=== PATIENT | female | born 1995 | race African-American/Black ===

== ENCOUNTER 2016-11-15 19:40 | Emergency (ER) | payer OTHER ==
[2016-11-15 22:48] LABS: MEAN CORPUSCULAR HEMOGLOBIN 32.4 pg (27.0-33.0); MEAN CORPUSCULAR HGB CONC 32.3 g/dl (32.0-36.5); MEAN CORPUSCULAR VOLUME 100.3 fl (80.0-96.0); RED CELL DISTRIBUTION WIDTH 12.3 % (11.5-14.5); WHITE BLOOD COUNT 9.8 K/mm3 (4.0-10.0)
[2016-11-15 23:25] LABS: ANION GAP 7 MEQ/L (8-16); BLOOD UREA NITROGEN 7 MG/DL (7-18); CALCIUM LEVEL 8.9 MG/DL (8.5-10.1); CARBON DIOXIDE LEVEL 27 MEQ/L (21-32); CHLORIDE LEVEL 105 MEQ/L (98-107); CREATININE FOR GFR 0.47 MG/DL (0.55-1.02); GLOMERULAR FILTRATION RATE > 60.0 (>60); GLUCOSE, FASTING 82 MG/DL (70-105); HCG, SERUM QUANTITATIVE 88318 MIU/ML; POTASSIUM SERUM 3.9 MEQ/L (3.5-5.1); SODIUM LEVEL 139 MEQ/L (136-145)
--- NOTE | 2016-11-15 23:50 | REPUSA ---
CLINICAL HISTORY: Pelvic pain. TECHNIQUE: Transabdominal ultrasound of the pelvis was performed. FINDINGS: The uterus is anteverted. A pole is identified with crown-rump length of 2.26 cm, which corresponds to a gestational age of 9 weeks and 0 days. heart motion is not demonstrated. Both ovaries are identified without adnexal mass or pelvic fluid collection. IMPRESSION: Single IUP dated at 9 weeks, without heartbeat compatible with embryonic demise.
[2016-11-16] MEDS ORDERED: metroNIDAZOLE (FLAGYL) 250 MG TAB As Ordered ONE (01:20)
--- NOTE | 2016-11-16 01:27 | EDDOCDS ---
Nurse's Notes [facility] Name: Janene Miner Age: 21 yrs Sex: Female : 1995 Arrival Date: 11/15/2016 Time: 19:40 Bed I3 / M3 [facility] Diagnosis: Missed ;Vaginitis, vulvitis and vulvovaginitis in diseases classified elsewhere Presentation: 11/15 19:48 Presenting complaint: Patient states: that she thinks she is and is having a ms18 "small vaginal odor". Adult Sepsis Screening: The patient does not have new or worsening altered mentation. Patient's respiratory rate is less than 22. Systolic blood pressure is greater than 100. Patient has a qSOFA score of 0- Negative Sepsis Screen. Suicide/Homicide risk assessment- the patient denies having any suicidal and/or homicidal ideations and does not present with any other emotional, behavioral or mental health complaints. 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 Transition of care: patient was not received from another setting of care. 19:48 Acuity: ED Level 4 ms18 19:48 Method Of Arrival: Walkin/Carried/Asstd ms18 Triage Assessment: 19:50 General: Appears in no apparent distress, Behavior is appropriate for age, cooperative. ms18 Pain: Denies pain. HIV screening NA for this visit Offered previously. Neurological: No deficits noted. Respiratory: No deficits noted. : Reports vaginal odor. Derm: Skin is pink, warm & dry. 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 none - PMHx: G6P deficiency; - PSHx: none; - Social history: Smoking status: Patient states was never smoker of tobacco. No barriers to communication noted, The patient speaks fluent Beninese. - Family history: Not pertinent. - : The pt / caregiver states he / she is not on anticoagulants. Home medication list is obtained from the patient. - Exposure Risk Screening:: None identified. Screenin/03 00:01 Screening information is obtained from the patient. Fall risk: No risks identified. lf1 Assistance ADL's: requires no assistance with activities of daily living. Nutritional screening: No deficits noted. 01:24 Abuse/DV Screen: The patient / caregiver reports he/she is: not in a situation that lf1 causes fear, pain or injury. Advance Directives: Currently, there is no health care proxy. home support is adequate. Assessment: 00:01 Adult Sepsis Screening: The patient does not have new or worsening altered mentation. lf1 Patient's respiratory rate is less than 22. Systolic blood pressure is greater than 100. Patient has a qSOFA score of 0- Negative Sepsis Screen. General: Appears in no apparent distress, comfortable, Behavior is cooperative, First Pt. contact - no report received. . Pain: Denies pain. Neurological: Level of Consciousness is awake, alert, Oriented to person, place, time. EENT: No deficits noted. Cardiovascular: Chest pain is denied. Respiratory: Respiratory effort is even, unlabored. GI: Denies nausea, vomiting. : Denies vaginal bleeding. Derm: Skin is normal. Injury Description: No known injury. 01:24 General: Appears in no apparent distress, comfortable, Behavior is cooperative, lf1 laughing with SO in room. Pain: Denies pain. Neurological: Level of Consciousness is awake, alert. EENT: No deficits noted. Cardiovascular: No deficits noted. Respiratory: Respiratory effort is even, unlabored. GI: Denies nausea, vomiting. Derm: Skin is normal. Vital Signs: 11/15 19:42 BP 114 / 61; Pulse 95; Resp 18 S; Temp 97.4(T); Pulse Ox 100% on R/A; Weight 48.53 kg dd6 (R); Height 5 ft. 2 in. (157.48 cm) (R); 11/16 00:01 BP 115 / 78; Pulse 76; Resp 16; Temp 98.0(TE); Pulse Ox 99% on R/A; Pain 0/10; lf1 00:54 BP 105 / 53 LA Sitting (auto/reg); Pulse 84 MON; Resp 18 S; Temp 98.6(TE); Pulse Ox 98% cln on R/A; Pain 0/10; 11/15 19:42 Body Mass Index 19.57 (48.53 kg, 157.48 cm) dd6 Vitals: 11/15 19:42 Log In Time: November 15, 2016 at 19:40. dd6 ED Course: 19:41 Patient visited by Jose Carlos Garza, DAILY. dd6 19:41 Patient moved to Waiting dd6 19:42 [facility], Tasha Millan is Private Physician. dd6 19:43 Patient moved to Pre RCE dd6 19:49 Triage Initiated ms18 22:07 Patient moved to Triage 2 ar3 22:08 Kwaku Venegas PA is PHCP. mo1 22:08 David Saldana MD is Attending Physician. mo1 22:13 Patient visited by Kwaku Venegas PA. mo1 22:20 Urine Culture Sent. jmb 22:20 UA Sent. jmb 22:39 Patient moved to TR1 cz 22:42 Wet Prep Sent. ar3 22:42 GC & Chlamydia Amplification Sent. ar3 22:42 BMP Sent. ar3 22:42 Complete Blood Count Sent. ar3 22:42 Hcg, Serum Quantitative Sent. ar3 22:42 Type & Screen Sent. ar3 22:43 Patient visited by Briana Roque PCA. ar3 22:43 Patient moved to Ultrasound dmg 23:06 Patient moved to TR1 dmg 23:42 [facility] Payment Agreement was scanned into [employer] and attached to record. lja 23:54 Patient moved to I3 / M3 jmb 01 00:01 The patient / caregiver is instructed regarding the plan of care and ED course. lf1 00:21 US 1st trimester Returned. EDMS 00:22 Patient visited by Jina Genao RN. lf1 00:55 Patient visited by Aneta Liu PCA. cln 01:04 Samm Lo MD is Referral Physician. mo1 01:24 No IV's were initiated during this patient's visit. No procedures done that require lf1 assistance. 01:27 Patient visited by Jina Genao RN. lf1 Administered Medications: 01:24 Drug: metroNIDAZOLE 500 mg [metronidazole 250 mg tablet (2 tabs)] Route: PO; lf1 Point of Care Testing: Urine : 11/15 22:43 hCG Reading: Positive; Control Reading: Positive; ar3 Ranges: Order Results: Lab Order: UA; SPEC'M 11/15/16 22:20 Test: APPEARANCE, URINE; Value: CLEAR; Range: CLEAR; Status: F Test: COLOR, URINE; Value: YELLOW; Range: YELLOW; Status: F Test: PH,URINE; Value: 7.0; Range: 5.0-9.0; Units: UNITS; Status: F Test: SPECIFIC GRAVITY URINE AUTO; Value: 1.015; Range: 1.002-1.035; Status: F Test: PROTEIN, URINE AUTO; Value: NEGATIVE; Range: NEGATIVE; Units: mg/dL; Status: F Test: GLUCOSE, URINE (UA) AUTO; Value: NEGATIVE; Range: NEGATIVE; Units: mg/dL; Status: F Test: KETONE, URINE AUTO; Value: NEGATIVE; Range: NEGATIVE; Units: mg/dL; Status: F Test: UROBILINOGEN, URINE AUTO; Value: 4.0; Range: 0.0-2.0; Abnormal: Above high normal; Units: mg/dL; Status: F Test: BILIRUBIN, URINE AUTO; Value: NEGATIVE; Range: NEGATIVE; Status: F Test: NITRITE, URINE AUTO; Value: NEGATIVE; Range: NEGATIVE; Status: F Test: LEUKOCYTE ESTERASE, URINE AUTO; Value: 1+; Range: NEGATIVE; Abnormal: Above high normal; Status: F Test: BLOOD, URINE BLOOD; Value: NEGATIVE; Range: NEGATIVE; Status: F Test: WBC, URINE AUTO; Value: 1; Range: 0-3; Units: /HPF; Status: F Test: RBC, URINE AUTO; Value: 2; Range: 0-3; Units: /HPF; Status: F Test: BACTERIA, URINE AUTO; Value: NEGATIVE; Range: NEGATIVE; Status: F Test: SQUAMOUS EPITHELIAL CELL UR AU; Value: 2; Range: 0-6; Units: /HPF; Status: F Test: HYALINE CAST, URINE AUTO; Value: 0; Range: 0-1; Units: /LPF; Status: F Test: AMORPHOUS SEDIMENT; Value: SMALL; Range: NEGATIVE; Abnormal: Above high normal; Status: F Lab Order: Complete Blood Count; SPEC'M 11/15/16 22:39 Test: WHITE BLOOD COUNT; Value: 9.8; Range: 4.0-10.0; Units: K/mm3; Status: F Test: RED BLOOD COUNT; Value: 3.59; Range: 4.00-5.40; Abnormal: Below low normal; Units: M/mm3; Status: F Test: HEMOGLOBIN; Value: 11.6; Range: 12.0-16.0; Abnormal: Below low normal; Units: g/dl; Status: F Test: HEMATOCRIT; Value: 36.0; Range: 36.0-47.0; Units: %; Status: F Test: MEAN CORPUSCULAR VOLUME; Value: 100.3; Range: 80.0-96.0; Abnormal: Above high normal; Units: fl; Status: F Test: MEAN CORPUSCULAR HEMOGLOBIN; Value: 32.4; Range: 27.0-33.0; Units: pg; Status: F Test: MEAN CORPUSCULAR HGB CONC; Value: 32.3; Range: 32.0-36.5; Units: g/dl; Status: F Test: RED CELL DISTRIBUTION WIDTH; Value: 12.3; Range: 11.5-14.5; Units: %; Status: F Test: PLATELET COUNT, AUTOMATED; Value: 319; Range: 150-450; Units: k/mm3; Status: F Lab Order: Hcg, Serum Quantitative; SPEC'M 11/15/16 22:39 Test: HCG, SERUM QUANTITATIVE; Value: 23993; Units: MIU/ML; Status: F Test Note: ; GESTATIONAL AGE APPROXIMATE HCG RANGE (MIU/ML) 0.2-1 WEEK 5-50 1-2 WEEKS 50-500 2-3 WEEKS 100-5,000 3-4 WEEKS 500-10,000 4-5 WEEKS 1,000-50,000 5-6 WEEKS 10,000-100,000 6-8 WEEKS 15,000-200,000 2-3 MONTHS 10,000-100,000 NON FEMALES LESS THAN 3.0 Patient samples may contain human heterophilic antibodies that could react with immunoassays to give falsely elevated or depressed results. This assay has been designed to minimize interference from heterophilic antibodies. Elevated hCG levels have also been associated with trophoblastic disease and nontrophoblastic neoplasms. The possibility of having these diseases should be considered before a diagnosis of is made. This test is not intended for use as a surrogate marker for aiding in the diagnosis or monitoring the treatment of cancer patients. Siemens Gimmie methodology. Lab Order: Type & Screen; SPEC'M 11/15/16 22:39 Test: BLOOD TYPE; Value: O POS; Status: F Test: AB SCREEN (INDIRECT CAN)GEL; Value: NEGATIVE; Status: F Lab Order: BMP; SPEC'M 11/15/16 22:39 Test: GLUCOSE, FASTING; Value: 82; Range: 70-105; Units: MG/DL; Status: F Test: BLOOD UREA NITROGEN; Value: 7; Range: 7-18; Units: MG/DL; Status: F Test: CREATININE FOR GFR; Value: 0.47; Range: 0.55-1.02; Abnormal: Below low normal; Units: MG/DL; Status: F Test: GLOMERULAR FILTRATION RATE; Value: > 60.0; Range: >60; Status: F Test: SODIUM LEVEL; Value: 139; Range: 136-145; Units: MEQ/L; Status: F Test: POTASSIUM SERUM; Value: 3.9; Range: 3.5-5.1; Units: MEQ/L; Status: F Test: CHLORIDE LEVEL; Value: 105; Range: 98-107; Units: MEQ/L; Status: F Test: CARBON DIOXIDE LEVEL; Value: 27; Range: 21-32; Units: MEQ/L; Status: F Test: ANION GAP; Value: 7; Range: 8-16; Abnormal: Below low normal; Units: MEQ/L; Status: F Test: CALCIUM LEVEL; Value: 8.9; Range: 8.5-10.1; Units: MG/DL; Status: F Test Note: ; Units are mL/min/1.73 m2 Chronic Kidney Disease Staging per NKF: Stage I & II GFR >=60 Normal to Mildly Decreased Stage III GFR 30-59 Moderately Decreased Stage IV GFR 15-29 Severely Decreased Stage V GFR <15 Very Little GFR Left ESRD GFR <15 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 Lab Order: Wet Prep; SPEC'M 11/15/16 22:36 Test: WET PREP; Value: WET PREP RESULT; Status: F Test: WET PREP; Value: MANY EPITHELIAL CELLS PRESENT; Status: F Test: WET PREP; Value: MANY CLUE CELLS PRESENT; Status: F Test: WET PREP; Value: MANY WBC; Status: F Test: WET PREP; Value: MANY SHORT RODS PRESENT; Status: F Radiology Order: US 1st trimester Test: US 1st trimester REASON FOR EXAMINATION: pelvic pain; ; CLINICAL HISTORY: Pelvic pain.; TECHNIQUE: Transabdominal ultrasound of the pelvis was; performed.; FINDINGS: The uterus is anteverted.; A pole is identified with crown-rump length of 2.26 cm, which corresponds to a gestational age; of 9 weeks and 0 days.; heart motion is not demonstrated.; Both ovaries are identified without adnexal mass or pelvic fluid collection.; IMPRESSION: Single IUP dated at 9 weeks, without heartbeat compatible with embryonic demise.; ; Outcome: 11/16 01:04 Discharge ordered by Provider. mo1 01:24 Discharge Assessment: Patient awake, alert and oriented x 3. No cognitive and/or lf1 functional deficits noted. Patient verbalized understanding of disposition instructions. Patient awake and alert. Oriented to person, place and time. Patient verbalized understanding of disposition instructions. Patient has no functional deficits. patient administered narcotics - no. The following High Risk Discharge criteria are identified: None. Discharged to home ambulatory, with significant other. Condition: unchanged. Discharge instructions given to patient, Instructed on discharge instructions, follow up and referral plans. medication usage, Demonstrated understanding of instructions, medications, Pt was receptive of discharge instructions/ teaching. Prescriptions given X 1. Ultrasound Study completed. Property :Personal belongings accompany Pt. 01:26 Patient left the ED. lf1 Signatures: Dispatcher [employer] EDMS Alphonso Arciniega, RN Susan Sol Lisa, RN RN lf1 Jose Carlos Garza, VULCANIZER VULCANIZER dd6 Briana Roque, VULCANIZER VULCANIZER wagner3 Kwaku Venegas PA PA mo1 Senthil Dias RN RN jmb Smith, Mallory, RN RN ms18 Jina Coleman Crystal, VULCANIZER VULCANIZER cln [place]
--- NOTE | 2016-11-16 01:27 | EDDOCDS ---
Physician Documentation [facility] Name: Janene Miner Age: 21 yrs Sex: Female : 1995 Arrival Date: 11/15/2016 Time: 19:40 Bed I3 / M3 Private MD: IATasha RODRIGUEZ Disposition: 11/16/16 01:04 Discharged to Home/Self Care. Impression: Missed , Vaginitis, vulvitis and vulvovaginitis in diseases classified elsewhere. - Condition is Stable. - Discharge Instructions: Bacterial Vaginosis, Incomplete Miscarriage, Miscarriage. - Prescriptions for Flagyl 500 mg Oral Tablet - take 1 tablet by ORAL route every 8 hours for 10 days; 30 tablet. - Medication Reconciliation, Local Pharmacy Hours form. - Follow up: Samm Lo MD; When: Call to arrange an appointment; Reason: Recheck today's complaints, Continuance of care. - Problem is new. - Symptoms are unchanged. Historical: - Allergies: G6P defficiency; - Home Meds: 1. none - PMHx: G6P deficiency; - PSHx: none; - Social history: Smoking status: Patient states was never smoker of tobacco. No barriers to communication noted, The patient speaks fluent Amharic. - Family history: Not pertinent. - : The pt / caregiver states he / she is not on anticoagulants. Home medication list is obtained from the patient. - Exposure Risk Screening:: None identified. 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 2 in. (157.48 cm) (R); 11/16 00:01 BP 115 / 78; Pulse 76; Resp 16; Temp 98.0(TE); Pulse Ox 99% on R/A; Pain 0/10; lf1 00:54 BP 105 / 53 LA Sitting (auto/reg); Pulse 84 MON; Resp 18 S; Temp 98.6(TE); Pulse Ox 98% cln on R/A; Pain 0/10; 11/15 19:42 Body Mass Index 19.57 (48.53 kg, 157.48 cm) dd6 MDM: 11/15 22:17 UCG by Nursing ordered. mo1 22:18 UA Ordered. EDMS 22:18 Urine Culture Ordered. EDMS 22:28 Complete Blood Count Ordered. EDMS 22:28 Hcg, Serum Quantitative Ordered. EDMS 22:28 BMP Ordered. EDMS 22:28 GC & Chlamydia Amplification Ordered. EDMS 22:28 Wet Prep Ordered. EDMS 22:29 Type & Screen Ordered. EDMS 22:29 US 1st trimester Ordered. EDMS 23:16 Wet Prep Reviewed. mo1 23:16 Complete Blood Count Reviewed. mo1 23:17 UA Reviewed. mo1 23:38 BMP Reviewed. mo1 23:38 Hcg, Serum Quantitative Reviewed. mo1 23:38 Type & Screen Reviewed. mo1 23:42 [facility] Payment Agreement was scanned into [employer] and attached to record. [place]saline 23:42 Financial registration complete. [facility] 11/16 01:07 metroNIDAZOLE 500 mg PO once ordered. mo1 Point of Care Testing: Urine : 11/15 22:43 hCG Reading: Positive; Control Reading: Positive; ar3 Ranges: Administered Medications: 11/16 01:24 Drug: metroNIDAZOLE 500 mg [metronidazole 250 mg tablet (2 tabs)] Route: PO; lf1 Signatures: Dispatcher [employer] Jina Mixon,RN RN lf1 Kwaku Venegas PA PA mo1 Shanna Floyd RN RN ms18 Jina Coleman The chart was reviewed and I authenticate all verbal orders and agree with the evaluation and treatment provided.Attachments: 11/15 23:42 [facility] Payment Agreement [facility] MTDD
--- NOTE | 2016-11-18 02:27 | EDDOCDS ---
Physician Documentation [facility] Name: Janene Miner Age: 21 yrs Sex: Female : 1995 Arrival Date: 11/15/2016 Time: 19:40 Bed I3 / M3 Private MD: ILTasha RODRIGUEZ Disposition: 11/16/16 01:04 Discharged to Home/Self Care. Impression: Missed , Vaginitis, vulvitis and vulvovaginitis in diseases classified elsewhere. - Condition is Stable. - Discharge Instructions: Bacterial Vaginosis, Incomplete Miscarriage, Miscarriage. - Prescriptions for Flagyl 500 mg Oral Tablet - take 1 tablet by ORAL route every 8 hours for 10 days; 30 tablet. - Medication Reconciliation, Local Pharmacy Hours form. - Follow up: Samm Lo MD; When: Call to arrange an appointment; Reason: Recheck today's complaints, Continuance of care. - Problem is new. - Symptoms are unchanged. Historical: - Allergies: G6P defficiency; - Home Meds: 1. none - PMHx: G6P deficiency; - PSHx: none; - Social history: Smoking status: Patient states was never smoker of tobacco. No barriers to communication noted, The patient speaks fluent Yoruba. - Family history: Not pertinent. - : The pt / caregiver states he / she is not on anticoagulants. Home medication list is obtained from the patient. - Exposure Risk Screening:: None identified. 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 2 in. (157.48 cm) (R); 11/16 00:01 BP 115 / 78; Pulse 76; Resp 16; Temp 98.0(TE); Pulse Ox 99% on R/A; Pain 0/10; lf1 00:54 BP 105 / 53 LA Sitting (auto/reg); Pulse 84 MON; Resp 18 S; Temp 98.6(TE); Pulse Ox 98% cln on R/A; Pain 0/10; 11/15 19:42 Body Mass Index 19.57 (48.53 kg, 157.48 cm) dd6 MDM: 11/15 22:17 UCG by Nursing ordered. mo1 22:18 UA Ordered. EDMS 22:18 Urine Culture Ordered. EDMS 22:28 Complete Blood Count Ordered. EDMS 22:28 Hcg, Serum Quantitative Ordered. EDMS 22:28 BMP Ordered. EDMS 22:28 GC & Chlamydia Amplification Ordered. EDMS 22:28 Wet Prep Ordered. EDMS 22:29 Type & Screen Ordered. EDMS 22:29 US 1st trimester Ordered. EDMS 23:16 Wet Prep Reviewed. mo1 23:16 Complete Blood Count Reviewed. mo1 23:17 UA Reviewed. mo1 23:38 BMP Reviewed. mo1 23:38 Hcg, Serum Quantitative Reviewed. mo1 23:38 Type & Screen Reviewed. mo1 23:42 [facility] Payment Agreement was scanned into [employer] and attached to record. [facility] 23:42 Financial registration complete. [facility] 11/16 01:07 metroNIDAZOLE 500 mg PO once ordered. mo1 04:36 T-Sheet-- Draft Copy was scanned into [employer] and attached to record. hs2 10:58 Radiology Report was scanned into [employer] and attached to record. gb 10:59 Other: CERTIFICATION INFO was scanned into [employer] and attached to record. gb Point of Care Testing: Urine : 11/15 22:43 hCG Reading: Positive; Control Reading: Positive; ar3 Ranges: Administered Medications: 11/16 01:24 Drug: metroNIDAZOLE 500 mg [metronidazole 250 mg tablet (2 tabs)] Route: PO; lf1 01:27 Follow up: Response: Pt left department before re-evaluation is appropriate lf1 Signatures: Dispatcher [employer] Stephanie Eduardo, Reg Reg gb Jina Genao,RN RN lf1 Kwaku Venegas PA PA mo1 Shanna Floyd,SOLA RN ms18 Jina Coleman Hillary, Reg Reg hs2 The chart was reviewed and I authenticate all verbal orders and agree with the evaluation and treatment provided.Attachments: 11/15 23:42 [facility] Payment Agreement [facility] 11/16 04:36 T-Sheet-- Draft Copy hs2 Chart Complete MTDD
--- NOTE | 2016-11-18 02:27 | EDDOCDS ---
Nurse's Notes [facility] Name: Janene Miner Age: 21 yrs Sex: Female : 1995 Arrival Date: 11/15/2016 Time: 19:40 Bed I3 / M3 [facility] Diagnosis: Missed ;Vaginitis, vulvitis and vulvovaginitis in diseases classified elsewhere Presentation: 11/15 19:48 Presenting complaint: Patient states: that she thinks she is and is having a ms18 "small vaginal odor". Adult Sepsis Screening: The patient does not have new or worsening altered mentation. Patient's respiratory rate is less than 22. Systolic blood pressure is greater than 100. Patient has a qSOFA score of 0- Negative Sepsis Screen. Suicide/Homicide risk assessment- the patient denies having any suicidal and/or homicidal ideations and does not present with any other emotional, behavioral or mental health complaints. 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 Transition of care: patient was not received from another setting of care. 19:48 Acuity: ED Level 4 ms18 19:48 Method Of Arrival: Walkin/Carried/Asstd ms18 Triage Assessment: 19:50 General: Appears in no apparent distress, Behavior is appropriate for age, cooperative. ms18 Pain: Denies pain. HIV screening NA for this visit Offered previously. Neurological: No deficits noted. Respiratory: No deficits noted. : Reports vaginal odor. Derm: Skin is pink, warm & dry. 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 none - PMHx: G6P deficiency; - PSHx: none; - Social history: Smoking status: Patient states was never smoker of tobacco. No barriers to communication noted, The patient speaks fluent Brazilian. - Family history: Not pertinent. - : The pt / caregiver states he / she is not on anticoagulants. Home medication list is obtained from the patient. - Exposure Risk Screening:: None identified. Screenin/03 00:01 Screening information is obtained from the patient. Fall risk: No risks identified. lf1 Assistance ADL's: requires no assistance with activities of daily living. Nutritional screening: No deficits noted. 01:24 Abuse/DV Screen: The patient / caregiver reports he/she is: not in a situation that lf1 causes fear, pain or injury. Advance Directives: Currently, there is no health care proxy. home support is adequate. Assessment: 00:01 Adult Sepsis Screening: The patient does not have new or worsening altered mentation. lf1 Patient's respiratory rate is less than 22. Systolic blood pressure is greater than 100. Patient has a qSOFA score of 0- Negative Sepsis Screen. General: Appears in no apparent distress, comfortable, Behavior is cooperative, First Pt. contact - no report received. . Pain: Denies pain. Neurological: Level of Consciousness is awake, alert, Oriented to person, place, time. EENT: No deficits noted. Cardiovascular: Chest pain is denied. Respiratory: Respiratory effort is even, unlabored. GI: Denies nausea, vomiting. : Denies vaginal bleeding. Derm: Skin is normal. Injury Description: No known injury. 01:24 General: Appears in no apparent distress, comfortable, Behavior is cooperative, lf1 laughing with SO in room. Pain: Denies pain. Neurological: Level of Consciousness is awake, alert. EENT: No deficits noted. Cardiovascular: No deficits noted. Respiratory: Respiratory effort is even, unlabored. GI: Denies nausea, vomiting. Derm: Skin is normal. Vital Signs: 11/15 19:42 BP 114 / 61; Pulse 95; Resp 18 S; Temp 97.4(T); Pulse Ox 100% on R/A; Weight 48.53 kg dd6 (R); Height 5 ft. 2 in. (157.48 cm) (R); 11/16 00:01 BP 115 / 78; Pulse 76; Resp 16; Temp 98.0(TE); Pulse Ox 99% on R/A; Pain 0/10; lf1 00:54 BP 105 / 53 LA Sitting (auto/reg); Pulse 84 MON; Resp 18 S; Temp 98.6(TE); Pulse Ox 98% cln on R/A; Pain 0/10; 11/15 19:42 Body Mass Index 19.57 (48.53 kg, 157.48 cm) dd6 Vitals: 11/15 19:42 Log In Time: November 15, 2016 at 19:40. dd6 ED Course: 19:41 Patient visited by Jose Carlos Garza, DAILY. dd6 19:41 Patient moved to Waiting dd6 19:42 [facility], Tasha Millan is Private Physician. dd6 19:43 Patient moved to Pre RCE dd6 19:49 Triage Initiated ms18 22:07 Patient moved to Triage 2 ar3 22:08 Kwaku Venegas PA is PHCP. mo1 22:08 David Saldana MD is Attending Physician. mo1 22:13 Patient visited by Kwaku Venegas PA. mo1 22:20 Urine Culture Sent. jmb 22:20 UA Sent. jmb 22:39 Patient moved to TR1 cz 22:42 Wet Prep Sent. ar3 22:42 GC & Chlamydia Amplification Sent. ar3 22:42 BMP Sent. ar3 22:42 Complete Blood Count Sent. ar3 22:42 Hcg, Serum Quantitative Sent. ar3 22:42 Type & Screen Sent. ar3 22:43 Patient visited by Briana Roque PCA. ar3 22:43 Patient moved to Ultrasound dmg 23:06 Patient moved to TR1 dmg 23:42 [facility] Payment Agreement was scanned into [employer] and attached to record. lja 23:54 Patient moved to I3 / M3 jmb 11/16 00:01 The patient / caregiver is instructed regarding the plan of care and ED course. lf1 00:21 US 1st trimester Returned. EDMS 00:22 Patient visited by Jina Genao,SOLA. lf1 00:55 Patient visited by Aneta Liu PCA. cln 01:04 Samm Lo MD is Referral Physician. mo1 01:24 No IV's were initiated during this patient's visit. No procedures done that require [facility] assistance. 01:27 Patient visited by Jina Genao RN. lf1 04:36 T-Sheet-- Draft Copy was scanned into [employer] and attached to record. hs2 10:58 Radiology Report was scanned into [employer] and attached to record. gb 10:59 Other: CERTIFICATION INFO was scanned into [employer] and attached to record. gb Administered Medications: 01:24 Drug: metroNIDAZOLE 500 mg [metronidazole 250 mg tablet (2 tabs)] Route: PO; lf1 01:27 Follow up: Response: Pt left department before re-evaluation is appropriate lf1 Point of Care Testing: Urine : 11/15 22:43 hCG Reading: Positive; Control Reading: Positive; ar3 Ranges: Order Results: Lab Order: UA; SPEC'M 11/15/16 22:20 Test: APPEARANCE, URINE; Value: CLEAR; Range: CLEAR; Status: F Test: COLOR, URINE; Value: YELLOW; Range: YELLOW; Status: F Test: PH,URINE; Value: 7.0; Range: 5.0-9.0; Units: UNITS; Status: F Test: SPECIFIC GRAVITY URINE AUTO; Value: 1.015; Range: 1.002-1.035; Status: F Test: PROTEIN, URINE AUTO; Value: NEGATIVE; Range: NEGATIVE; Units: mg/dL; Status: F Test: GLUCOSE, URINE (UA) AUTO; Value: NEGATIVE; Range: NEGATIVE; Units: mg/dL; Status: F Test: KETONE, URINE AUTO; Value: NEGATIVE; Range: NEGATIVE; Units: mg/dL; Status: F Test: UROBILINOGEN, URINE AUTO; Value: 4.0; Range: 0.0-2.0; Abnormal: Above high normal; Units: mg/dL; Status: F Test: BILIRUBIN, URINE AUTO; Value: NEGATIVE; Range: NEGATIVE; Status: F Test: NITRITE, URINE AUTO; Value: NEGATIVE; Range: NEGATIVE; Status: F Test: LEUKOCYTE ESTERASE, URINE AUTO; Value: 1+; Range: NEGATIVE; Abnormal: Above high normal; Status: F Test: BLOOD, URINE BLOOD; Value: NEGATIVE; Range: NEGATIVE; Status: F Test: WBC, URINE AUTO; Value: 1; Range: 0-3; Units: /HPF; Status: F Test: RBC, URINE AUTO; Value: 2; Range: 0-3; Units: /HPF; Status: F Test: BACTERIA, URINE AUTO; Value: NEGATIVE; Range: NEGATIVE; Status: F Test: SQUAMOUS EPITHELIAL CELL UR AU; Value: 2; Range: 0-6; Units: /HPF; Status: F Test: HYALINE CAST, URINE AUTO; Value: 0; Range: 0-1; Units: /LPF; Status: F Test: AMORPHOUS SEDIMENT; Value: SMALL; Range: NEGATIVE; Abnormal: Above high normal; Status: F Lab Order: Urine Culture; SPEC'M 11/15/16 22:20 Test: URINE CULTURE; Value: URINE CULTURE RESULT; Status: F Test: URINE CULTURE; Value: NO GROWTH CLINICAL SIGNIFICANCE 2 OR MORE ORGANISMS; Status: F Lab Order: Complete Blood Count; SPEC'M 11/15/16 22:39 Test: WHITE BLOOD COUNT; Value: 9.8; Range: 4.0-10.0; Units: K/mm3; Status: F Test: RED BLOOD COUNT; Value: 3.59; Range: 4.00-5.40; Abnormal: Below low normal; Units: M/mm3; Status: F Test: HEMOGLOBIN; Value: 11.6; Range: 12.0-16.0; Abnormal: Below low normal; Units: g/dl; Status: F Test: HEMATOCRIT; Value: 36.0; Range: 36.0-47.0; Units: %; Status: F Test: MEAN CORPUSCULAR VOLUME; Value: 100.3; Range: 80.0-96.0; Abnormal: Above high normal; Units: fl; Status: F Test: MEAN CORPUSCULAR HEMOGLOBIN; Value: 32.4; Range: 27.0-33.0; Units: pg; Status: F Test: MEAN CORPUSCULAR HGB CONC; Value: 32.3; Range: 32.0-36.5; Units: g/dl; Status: F Test: RED CELL DISTRIBUTION WIDTH; Value: 12.3; Range: 11.5-14.5; Units: %; Status: F Test: PLATELET COUNT, AUTOMATED; Value: 319; Range: 150-450; Units: k/mm3; Status: F Lab Order: Hcg, Serum Quantitative; SPEC'M 11/15/16 22:39 Test: HCG, SERUM QUANTITATIVE; Value: 42040; Units: MIU/ML; Status: F Test Note: ; GESTATIONAL AGE APPROXIMATE HCG RANGE (MIU/ML) 0.2-1 WEEK 5-50 1-2 WEEKS 50-500 2-3 WEEKS 100-5,000 3-4 WEEKS 500-10,000 4-5 WEEKS 1,000-50,000 5-6 WEEKS 10,000-100,000 6-8 WEEKS 15,000-200,000 2-3 MONTHS 10,000-100,000 NON FEMALES LESS THAN 3.0 Patient samples may contain human heterophilic antibodies that could react with immunoassays to give falsely elevated or depressed results. This assay has been designed to minimize interference from heterophilic antibodies. Elevated hCG levels have also been associated with trophoblastic disease and nontrophoblastic neoplasms. The possibility of having these diseases should be considered before a diagnosis of is made. This test is not intended for use as a surrogate marker for aiding in the diagnosis or monitoring the treatment of cancer patients. [employer] methodology. Lab Order: Type & Screen; SPEC'M 11/15/16 22:39 Test: BLOOD TYPE; Value: O POS; Status: F Test: AB SCREEN (INDIRECT CAN)GEL; Value: NEGATIVE; Status: F Lab Order: BMP; SPEC'M 11/15/16 22:39 Test: GLUCOSE, FASTING; Value: 82; Range: 70-105; Units: MG/DL; Status: F Test: BLOOD UREA NITROGEN; Value: 7; Range: 7-18; Units: MG/DL; Status: F Test: CREATININE FOR GFR; Value: 0.47; Range: 0.55-1.02; Abnormal: Below low normal; Units: MG/DL; Status: F Test: GLOMERULAR FILTRATION RATE; Value: > 60.0; Range: >60; Status: F Test: SODIUM LEVEL; Value: 139; Range: 136-145; Units: MEQ/L; Status: F Test: POTASSIUM SERUM; Value: 3.9; Range: 3.5-5.1; Units: MEQ/L; Status: F Test: CHLORIDE LEVEL; Value: 105; Range: 98-107; Units: MEQ/L; Status: F Test: CARBON DIOXIDE LEVEL; Value: 27; Range: 21-32; Units: MEQ/L; Status: F Test: ANION GAP; Value: 7; Range: 8-16; Abnormal: Below low normal; Units: MEQ/L; Status: F Test: CALCIUM LEVEL; Value: 8.9; Range: 8.5-10.1; Units: MG/DL; Status: F Test Note: ; Units are mL/min/1.73 m2 Chronic Kidney Disease Staging per NKF: Stage I & II GFR >=60 Normal to Mildly Decreased Stage III GFR 30-59 Moderately Decreased Stage IV GFR 15-29 Severely Decreased Stage V GFR <15 Very Little GFR Left ESRD GFR <15 on AUTOMOTIVE INTERNET 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 Lab Order: GC & Chlamydia Amplification; SPEC'M 11/15/16 22:36 Test: CHLAMYDIA DNA AMPLIFICATION; Value: NEGATIVE; Range: NEGATIVE; Status: F Test: GC DNA AMPLIFICATION; Value: NEGATIVE; Range: NEGATIVE; Status: F Lab Order: Wet Prep; SPEC'M 11/15/16 22:36 Test: WET PREP; Value: WET PREP RESULT; Status: F Test: WET PREP; Value: MANY EPITHELIAL CELLS PRESENT; Status: F Test: WET PREP; Value: MANY CLUE CELLS PRESENT; Status: F Test: WET PREP; Value: MANY WBC; Status: F Test: WET PREP; Value: MANY SHORT RODS PRESENT; Status: F Radiology Order: US 1st trimester Test: US 1st trimester REASON FOR EXAMINATION: pelvic pain; ; CLINICAL HISTORY: Pelvic pain.; TECHNIQUE: Transabdominal ultrasound of the pelvis was; performed.; FINDINGS: The uterus is anteverted.; A pole is identified with crown-rump length of 2.26 cm, which corresponds to a gestational age; of 9 weeks and 0 days.; heart motion is not demonstrated.; Both ovaries are identified without adnexal mass or pelvic fluid collection.; IMPRESSION: Single IUP dated at 9 weeks, without heartbeat compatible with embryonic demise.; ; Outcome: 11/16 01:04 Discharge ordered by Provider. mo1 01:24 Discharge Assessment: Patient awake, alert and oriented x 3. No cognitive and/or lf1 functional deficits noted. Patient verbalized understanding of disposition instructions. Patient awake and alert. Oriented to person, place and time. Patient verbalized understanding of disposition instructions. Patient has no functional deficits. patient administered narcotics - no. The following High Risk Discharge criteria are identified: None. Discharged to home ambulatory, with significant other. Condition: unchanged. Discharge instructions given to patient, Instructed on discharge instructions, follow up and referral plans. medication usage, Demonstrated understanding of instructions, medications, Pt was receptive of discharge instructions/ teaching. Prescriptions given X 1. Ultrasound Study completed. Property :Personal belongings accompany Pt. 01:26 Patient left the ED. lf1 Signatures: Dispatcher [employer] EDMS Alphonso Arciniega RN RN cz Gunn, Deanne dmg Barnhardt, Gloria, Reg Reg gb Chadwick,Jina,RN RN lf1 Jose Carlos Garza, PENOLOGY TEACHER PENOLOGY TEACHER dd6 Briana Roque, PENOLOGY TEACHER PENOLOGY TEACHER ar3 Kwaku Venegas PA PA mo1 Senthil Dias,RN RN michaelb Shanna Floyd,RN RN ms18 [place], Karen Falcon, Reg Reg hs2 Noe, Aneta, PENOLOGY TEACHER PENOLOGY TEACHER cln Chart Complete MTDD
--- NOTE | 2016-11-18 02:27 | EDDOCDS ---
Physician Documentation [facility] Name: Janene Miner Age: 21 yrs Sex: Female : 1995 Arrival Date: 11/15/2016 Time: 19:40 Bed I3 / M3 Private MD: MITasha RODRIGUEZ Disposition: 11/16/16 01:04 Discharged to Home/Self Care. Impression: Missed , Vaginitis, vulvitis and vulvovaginitis in diseases classified elsewhere. - Condition is Stable. - Discharge Instructions: Bacterial Vaginosis, Incomplete Miscarriage, Miscarriage. - Prescriptions for Flagyl 500 mg Oral Tablet - take 1 tablet by ORAL route every 8 hours for 10 days; 30 tablet. - Medication Reconciliation, Local Pharmacy Hours form. - Follow up: Samm Lo MD; When: Call to arrange an appointment; Reason: Recheck today's complaints, Continuance of care. - Problem is new. - Symptoms are unchanged. Historical: - Allergies: G6P defficiency; - Home Meds: 1. none - PMHx: G6P deficiency; - PSHx: none; - Social history: Smoking status: Patient states was never smoker of tobacco. No barriers to communication noted, The patient speaks fluent Croatian. - Family history: Not pertinent. - : The pt / caregiver states he / she is not on anticoagulants. Home medication list is obtained from the patient. - Exposure Risk Screening:: None identified. 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 2 in. (157.48 cm) (R); 11/16 00:01 BP 115 / 78; Pulse 76; Resp 16; Temp 98.0(TE); Pulse Ox 99% on R/A; Pain 0/10; lf1 00:54 BP 105 / 53 LA Sitting (auto/reg); Pulse 84 MON; Resp 18 S; Temp 98.6(TE); Pulse Ox 98% cln on R/A; Pain 0/10; 11/15 19:42 Body Mass Index 19.57 (48.53 kg, 157.48 cm) dd6 MDM: 11/15 22:17 UCG by Nursing ordered. mo1 22:18 UA Ordered. EDMS 22:18 Urine Culture Ordered. EDMS 22:28 Complete Blood Count Ordered. EDMS 22:28 Hcg, Serum Quantitative Ordered. EDMS 22:28 BMP Ordered. EDMS 22:28 GC & Chlamydia Amplification Ordered. EDMS 22:28 Wet Prep Ordered. EDMS 22:29 Type & Screen Ordered. EDMS 22:29 US 1st trimester Ordered. EDMS 23:16 Wet Prep Reviewed. mo1 23:16 Complete Blood Count Reviewed. mo1 23:17 UA Reviewed. mo1 23:38 BMP Reviewed. mo1 23:38 Hcg, Serum Quantitative Reviewed. mo1 23:38 Type & Screen Reviewed. mo1 23:42 [facility] Payment Agreement was scanned into [employer] and attached to record. [facility] 23:42 Financial registration complete. [facility] 11/16 01:07 metroNIDAZOLE 500 mg PO once ordered. mo1 04:36 T-Sheet-- Draft Copy was scanned into [employer] and attached to record. hs2 10:58 Radiology Report was scanned into [employer] and attached to record. gb 10:59 Other: CERTIFICATION INFO was scanned into [employer] and attached to record. gb Point of Care Testing: Urine : 11/15 22:43 hCG Reading: Positive; Control Reading: Positive; ar3 Ranges: Administered Medications: 11/16 01:24 Drug: metroNIDAZOLE 500 mg [metronidazole 250 mg tablet (2 tabs)] Route: PO; lf1 01:27 Follow up: Response: Pt left department before re-evaluation is appropriate lf1 Signatures: Dispatcher [employer] Stephanie Eduardo, Reg Reg gb Jina Genao,RN RN lf1 Kwaku Venegas PA PA mo1 Shanna Floyd,SOLA RN ms18 Jina Coleman Hillary, Reg Reg hs2 The chart was reviewed and I authenticate all verbal orders and agree with the evaluation and treatment provided.Attachments: 11/15 23:42 [facility] Payment Agreement [facility] 11/16 04:36 T-Sheet-- Draft Copy hs2 Chart Complete MTDD
== END 2016-11-16 01:26 | disposition home or self-care (01) ==
LOC: M ED 19:40
DX: O02.1 Missed abortion (principal); O23.591 Infection of other part of genital tract in pregnancy, first trimester; R10.2 Pelvic and perineal pain; D55.0 Anemia due to glucose-6-phosphate dehydrogenase [G6PD] deficiency; O99.011 Anemia complicating pregnancy, first trimester; Z3A.09 9 weeks gestation of pregnancy

== ENCOUNTER → 2016-12-02 | Day surgery (SDC) | payer OTHER ==
[~2016-12-02] VITALS: Ht 157.5 cm; Wt 48.5 kg
[~2016-12-02] MED LIST: KETOROLAC 60 MG/2 ML VIAL (J1885) As Ordered ONE; LIDOCAINE 1% SDV INJ 30 ML VIAL As Ordered ONE; LIDOCAINE 1% SDV INJ 30 ML VIAL XX ONE; LIDOCAINE 2% INJ 100 MG/5 ML SDV (FOR ANES.) As Ordered ONE; LR 1,000 ML IV SCH; MIDAZOLAM INJ 2 MG/2 ML VIAL (J2250) As Ordered ONE; ONDANSETRON 4MG/2ML VIAL (J2405) As Ordered ONE; PROPOFOL 200 MG/20 ML VIAL As Ordered ONE; SILVER NITRATE APPLICATOR As Ordered ONE; dexameTHASONE 4 MG/ML 1ML VIAL (J1100) As Ordered ONE; fentaNYL 100 MCG/2 ML INJECTION (J3010) As Ordered ONE; no medications
[2016-12-02 11:36] LABS: MEAN CORPUSCULAR HEMOGLOBIN 33.7 pg (27.0-33.0); MEAN CORPUSCULAR HGB CONC 33.3 g/dl (32.0-36.5); MEAN CORPUSCULAR VOLUME 101.3 fl (80.0-96.0); RED CELL DISTRIBUTION WIDTH 11.7 % (11.5-14.5); WHITE BLOOD COUNT 6.3 K/mm3 (4.0-10.0)
[2016-12-02 15:10] VITALS: BP 107/59
--- NOTE | 2016-12-03 08:12 | RO ---
DATE OF PROCEDURE: 12/02/2016 PREOPERATIVE DIAGNOSIS: 9 weeks missed diagnosed in the emergency room 2 weeks ago roughly. Came to me for followup in the clinic and failed misoprostol miscarriage induction at home times two. Therefore, recommended and elected to go ahead with suction, dilation and curettage. POSTOPERATIVE DIAGNOSIS: 9 weeks missed diagnosed in the emergency room 2 weeks ago roughly. Came to me for followup in the clinic and failed misoprostol miscarriage induction at home times two. Therefore, recommended and elected to go ahead with suction, dilation and curettage. PROCEDURE: Suction, dilation and curettage. SURGEON: Samm Lo MD ELECTRIC METER INSPECTOR: ANESTHESIA: Monitored anesthesia care (MAC). ESTIMATED BLOOD LOSS: 100 mL. FLUIDS: 600 mL of lactated Ringer's. SPECIMENS REMOVED: Products of conception. INDICATION: Please see preoperative diagnosis. Informed consent was obtained on 11/30/2016. Her preoperative labs today were normal, including type and screen and complete blood count (CBC). DESCRIPTION OF OPERATION: Patient was taken to the operating room where MAC anesthesia was obtained. She was placed in the low lithotomy position without difficulty. I confirmed the placement of her legs. She was then prepped and draped in normal sterile fashion. A open-sided speculum was placed into the vagina. The cervix was grasped anteriorly with a tenaculum. The uterus was sounded to 8 cm and the cervix was then sequentially dilated using Hanks dilators. I was unable to place a 10 mm curved suction curette. Therefore, a 9 mm curved suction curette was placed into intrauterine cavity and attached to suction. Once the suction was to green, I began to rotate the curette and with gentle in and out motions removed the intrauterine contents. This was repeated several times until there was no further tissue or blood through the tubing. The suction curetted was removed. A sharp curette was then introduced into the cavity and the inner lining of the uterus was removed with successive curettage until there was a gritty texture noted throughout in all four quadrants. The suction curette was then reintroduced one further time and only a very small amount of blood was noted to come through the tubing. Her bleeding was never heavy. The curette was removed from the uterus. Tenaculum was removed as well, and silver nitrate was used to obtain hemostasis from the tenaculum sites. Of note, I forgot to mention that a paracervical block with 1% lidocaine, 6 mL was performed at 6, 10 and 2. These sites were also hemostatic at the end of the case. The paracervical block was done prior to dilation of the cervix. All sponge, needle and instrument counts were correct times two. MTDD
== END | disposition home or self-care (01) ==
LOC: M SDC 10:59
PROVIDERS: ATTEND Obstetrics & Gynecology
DX: O02.1 Missed abortion (principal)
CPT/HCPCS: 36415; 59820; 85027; 86850; 86900; 86901; 88305; J1100; J1885; J2250; J2405; J3010